=== PATIENT | female | born 1950 | race Two or more races ===

== ENCOUNTER 2024-08-03 19:23 | Emergency (ER) | payer OTHER ==
[~2024-08-03] VITALS: Ht 162.6 cm; Wt 83.5 kg
[2024-08-03] MEDS ORDERED: TETANUS & DIPHTHERIA TOX,ADULT 0.5 ML VIAL IM ONE (21:15)
[2024-08-03] MEDS ORDERED: DIPHTH,PERTUSS(ACELL),TET VAC 0.5 ML SYRINGE IM ONE (21:37)
== END 2024-08-03 22:08 | disposition home or self-care (01) ==
LOC: ER 19:23
DX: S61.421A Laceration with foreign body of right hand, initial encounter (principal); W31.89XA Contact with other specified machinery, initial encounter; Y93.89 Activity, other specified; Y92.89 Other specified places as the place of occurrence of the external cause; Z88.0 Allergy status to penicillin
CPT/HCPCS: 12001; 90471; 90714; 99282; J1670